=== PATIENT | male | born 1995 | race Caucasian/White ===

== ENCOUNTER 2019-08-08 20:21 | Emergency (ER) | payer OTHER ==
[2019-08-08] MEDS ORDERED: Ibuprofen TAB* 600 MG PO ONE (20:32)
[2019-08-08 20:38] VITALS: BP 143/79
[2019-08-08] MEDS ORDERED: predniSONE TAB* 20 MG PO ONE (20:50)
[2019-08-08] MEDS ORDERED: Albuterol/Ipratropium NEB.SOL* Albuterol 2.5 MG/Ipratropium 0.5 MG 3 ML INH ONE (20:50)
--- NOTE | 2019-08-08 20:56 | UC ---
Respiratory Complaint HPI - HPI Summary HPI Summary: C/O URI symptoms x 1 weeks now with worsening wheezing. Congestion and sore throat without sinus or ear pain - History of Current Complaint Chief Complaint: UCRespiratory Stated Complaint: COUGH, SWEATS, MUSCLE SPASMS Time Seen by Provider: 08/08/19 20:32 Hx Obtained From: Patient Onset/Duration: Sudden Onset, Lasting Weeks - 1, Worse Since - last 2 days Timing: Constant Severity Initially: Mild Severity Currently: Moderate Pain Intensity: 0 Character: Cough: Nonproductive Aggravating Factors: Deep Breaths, Recumbent Position Alleviating Factors: Nothing Associated Signs And Symptoms: Positive: Dyspnea, Pleuritic Chest Pain, Wheezing , URI, Nasal Congestion Related History: Seasonal Allergies - Risk Factors Pulmonary Embolism Risk Factors: Negative - Allergies/Home Medications Allergies/Adverse Reactions: Allergies Allergy/AdvReac Type Severity Reaction Status Date / Time Penicillins Allergy Unknown Unknown Verified 08/08/19 20:31 Reaction Details Home Medications: Home Medications Acetaminophen [Pain Relief] 1,500 mg PO PRN 08/08/19 [History] Guaifen/Phenyleph/Acetaminophn [Mucinex Fast-Max Cold-Sinus Tb] 1 tab PO PRN 12/22 [History] PMH/Surg Hx/FS Hx/Imm Hx Respiratory History: Asthma - Surgical History Surgical History: Yes Surgery Procedure, Year, and Place: HERNIA REPAIR AN [facility] - Family History Known Family History: Negative: Diabetes - Social History Occupation: Employed Full-time Lives: Alone - with fiance Alcohol Use: Occasionally Substance Use Type: Marijuana Smoking Status (MU): Light Every Day Tobacco Smoker Type: eCigarettes Review of Systems All Other Systems Reviewed And Are Negative: Yes Constitutional: Positive: Fever, Chills, Fatigue ENT: Positive: Sore Throat, Ear Ache Respiratory: Positive: Shortness Of Breath, Cough Physical Exam Triage Information Reviewed: Yes Appearance: No Pain Distress, Well-Nourished, Ill-Appearing - mild Vital Signs: Initial Vital Signs Temp 101.5 F 08/08/19 20:33 Pulse 113 08/08/19 20:33 Resp 18 08/08/19 20:33 BP 143/79 08/08/19 20:33 Pulse Ox 98 08/08/19 20:33 Vital Signs Reviewed: Yes Eyes: Positive: Conjunctiva Clear ENT: Positive: Pharynx normal, Nasal congestion, TMs normal Neck exam: Normal Respiratory: Positive: Wheezing - diffuse expiratory wheezes Cardiovascular Exam: Normal Musculoskeletal Exam: Normal Neurological Exam: Normal Psychological Exam: Normal Skin Exam: Normal Re-Evaluation - Re-Evaluation First Eval Re-Evaluation Time: 21:10 Change: Improved - Breathing is better but still some wheezing. Respiratory Course/Dx - Differential Dx/Diagnosis Differential Diagnosis/HQI/PQRI: Asthma, Lower Resp Infection, Sinusitis Provider Diagnosis: Upper respiratory infection, Asthma with acute exacerbation in adult Discharge ED - Sign-Out/Discharge Documenting (check all that apply): Patient Departure All imaging exams completed and their final reports reviewed: No Studies - Discharge Plan Condition: Stable Disposition: HOME Prescriptions: Albuterol HFA INHALER* [Ventolin HFA Inhaler*] 2 puff INH Q4H PRN #1 mdi PRN Reason: Wheezing predniSONE TAB* [Deltasone 20 MG TAB*] 60 mg PO DAILY #18 tab Patient Education Materials: Asthma (ED), Upper Respiratory Infection (DC), Prednisone (By mouth) Referrals: No Primary Care Phys,NOPCP [Primary Care Provider] - - Billing Disposition and Condition Condition: STABLE Disposition: Home
[2019-08-08] MEDS ORDERED: Albuterol HFA INHALER* 8 gm MDI INH ONE (21:09)
== END 2019-08-08 21:21 | disposition home or self-care (01) ==
LOC: UCCORT 20:21
DX: J45.901 Unspecified asthma with (acute) exacerbation (principal); J06.9 Acute upper respiratory infection, unspecified; F17.210 Nicotine dependence, cigarettes, uncomplicated; Z88.0 Allergy status to penicillin
CPT/HCPCS: 99203; A9270-GY; G0463; J7512